=== PATIENT | male | born 1940 | race Caucasian/White ===

== ENCOUNTER → 2017-02-04 | Outpatient (CLI) | payer OTHER, BC ==
[~2017-02-04] MED LIST: ACET325T96 PO; BACI1OIN TOP; CLON0.5T3 PO; DOCU100C31 PO; FINA5TAB4 PO; IBUP600T44 PO; MULT-190 PO; QUET1TAB30 PO; SENN-61 PO; TAMS0.4C38 PO; TRAZ50TA35 PO
[2017-02-04 17:57] LABS: URINE APPEARANCE CLEAR (CLEAR); URINE BILIRUBIN NEG (NEG); URINE COLOR YELLOW; URINE EPITHELIAL CELL AUTO 20-30 /lpf (0-5); URINE NITRITE POS (NEG); URINE SPECIFIC GRAVITY 1.023 (1.000-1.030); UROBILINOGEN NEG (NEG)
[2017-02-04 17:58] LABS: MANUAL MICROSCOPIC REQUIRED? NO; REVIEW REQ? YES
--- NOTE | 2017-02-13 11:31 | CODING QUERY MEDICAL NECESSITY ---
CQSUPPORTING DIAGNOSIS NEEDED A supporting diagnosis is required for the test/procedure performed on this patient in order for us to be reimbursed by the patient's insurance. Please provide a supporting diagnosis for the following test/procedure listed below next to the test name along with your signature. *If there is no additional diagnosis for this patient that would support the following test/procedure please document that below next to the test/procedure. Test(s)/Procedure(s) that require a supporting diagnosis: DOS 02/04/17 URINE CULTURE TEST PATIENT AT [facility] Provider Signature: Date: Thank you Natasha John Health Information Management Once completed, please kindly fax back to [phone] For questions please call [phone]
== END ==
LOC: C.LABOUTLO 11:21
PROVIDERS: ATTEND Family Medicine
DX: R45.1 Restlessness and agitation (principal); N39.0 Urinary tract infection, site not specified; R41.82 Altered mental status, unspecified

== ENCOUNTER → 2017-02-08 | Outpatient (CLI) | payer OTHER, BC ==
[2017-02-08 10:18] LABS: BASO % 0.2 %; BASO ABS # 0.02 K/uL (0-0.2); COMPLETE YES; EOS % 1.2 %; HEMATOCRIT 41.2 % (42-52); IG% 0.3 %; LYMPH % 20.6 %; LYMPH ABS # 1.99 K/uL (1.2-3.4); MEAN CELL VOLUME 88.4 fL (80-100); MEAN CORPUSCULAR HEMOGLOBIN 30.7 pg (25-34); MEAN CORPUSCULAR HGB CONC 34.7 g/dl (32-36); MEAN PLATELET VOLUME 9.9 fL (7.4-10.4); MONO % 7.2 %; NEUT % 70.5 %; PLATELET COUNT 277 K/uL (130-400); RED BLOOD COUNT 4.66 M/uL (4.7-6.1); WHITE BLOOD COUNT 9.64 K/uL (4.8-10.8)
[2017-02-08 10:27] LABS: BLOOD UREA NITROGEN 17 mg/dl (7-18); BUN/CREATININE RATIO 18.2 (10-20); CALCIUM 8.9 mg/dl (8.5-10.1); CARBON DIOXIDE 27 mmol/L (21-32); CHLORIDE 109 mmol/L (98-107); CREATININE 0.94 mg/dl (0.60-1.40); GLUCOSE 90 mg/dl (70-99); SODIUM 142 mmol/L (136-145)
== END | disposition home or self-care (01) ==
LOC: C.LABOUTLO 10:03
PROVIDERS: ATTEND Family Medicine
DX: R45.1 Restlessness and agitation (principal)

== ENCOUNTER 2017-05-27 05:12 | Emergency (ER) | payer OTHER, BC ==
[~2017-05-27] VITALS: Ht 170.2 cm; Wt 74.6 kg
[~2017-05-27 05:12] MED LIST changes: -ACET325T96 PO; -CLON0.5T3 PO; -DOCU100C31 PO; -IBUP600T44 PO; -QUET1TAB30 PO; -SENN-61 PO; -TRAZ50TA35 PO
[2017-05-27 05:21] VITALS: Ht 170.2 cm; Wt 74.6 kg
[2017-05-27] MEDS ORDERED: XYLOCAINE 1%/SOD BICARB 20 ML VIAL INFIL ONE (05:45)
[2017-05-27] MEDS ORDERED: IBUP600T44 PO (05:51)
--- NOTE | 2017-05-27 05:51 | EMERGENCY ROOM VISIT NOTE ---
History Report prepared by Elizabeth: Pierre Barrios Under the Supervision of: Dr. Chanel Montez D.O. First contact with patient: 05:22 Chief Complaint: FALL Stated Complaint: FALL/LACERATION History of Present Illness The patient is a 77 year old male who presents to the Emergency Room after rolling out of bed this morning at [facility] shortly prior to arrival. Per hospital nursing staff the patient rolled out of bed and hit his head on his dresser while falling to the floor. The patient did not lose consciousness at any time. He denies any neck, back, or abdominal pain at this time. He has a known history of dementia. 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 A total of 10 systems reviewed and were otherwise negative. Past Medical & Surgical Medical Problems: (1) UTI (urinary tract infection) Family History No pertinent family history secondary to age. Social History Smoking Status: Former Smoker Alcohol Use: none Housing Status: lives alone Occupation Status: retired Current/Historical Medications Scheduled Bacitracin Zinc (Bacitracin), 1 APPLN TOP DAILY Finasteride (Proscar), 5 MG PO DAILY Ibuprofen (Motrin), 600 MG PO TID Ocuvite Preservision (Ocuvite Preservision), 1 TAB PO DAILY Quetiapine Fumarate (Seroquel), 25 MG PO HS Tamsulosin Hcl (Flomax), 0.4 MG PO DAILY Scheduled PRN Acetaminophen Tab (Tylenol), 325 MG PO QID PRN for Pain Clonazepam (Klonopin), 0.5 MG PO BID PRN for AGITATION/INSOMNIA Docusate Sodium (Docusate Sodium), 1 CAP PO BID PRN for Constipation Senna (Senokot), 1 TAB PO DAILY PRN for Constipation Trazodone Hcl (Trazodone), 25 MG PO HS PRN for Sleep Allergies Coded Allergies: No Known Allergies (Unverified , 05/27/17) Physical Exam Vital Signs Date Time Temp Pulse Resp B/P (MAP) Pulse Ox O2 Delivery O2 Flow Rate FiO2 05/27/17 05:21 36.6 76 18 134/76 94 Room Air Physical Exam General: The patient is pleasantly confused, easily follows commands. HEENT: Head - There is a 3 cm laceration just lateral to the left eyebrow. Pupils are equal, round, and reactive to light. Extraocular eye muscles are intact, and sclera are anicteric. Nose - moist nasal mucosa without discharge. Mouth - moist buccal mucosa. Ears - No hemotympanum. Oropharynx is nonerythematous and there is no tonsillar exudate or edema noted. Neck: Supple; no JVD, nuchal rigidity, cervical lymphadenopathy, or auscultated bruits. Heart: Regular rate and rhythm. There is a normal S1 and S2 with no murmurs, clicks, or gallops appreciated. Lungs: Clear to auscultation bilaterally with no wheezes, rales, or rhonchi. Abdomen: Soft, completely nontender, nondistended, with good bowel sounds. There are no palpable pulsatile masses or hepatosplenomegaly. There is no guarding, rigidity, or rebound noted. Extremities: No evidence of cyanosis, clubbing, or edema. There are easily palpable peripheral pulses. Skin: warm and dry with good turgor and no rashes. Medical Decision & Procedures Procedure Medications Ordered: Lidocaine Laceration Repair: Laceration Repair was performed by Landon Ovalle PA-C. See his note for further detail. ED Course 0524: Past medical records reviewed. The patient was evaluated in room A9. A complete history and physical exam was performed. 0545: Ordered Lidocaine HCl 20 mL. the wound was repaired by Landon Ovalle PA-C. Please see his dictation for complete procedure 0624: Upon reevaluation, the patient tolerated his laceration repair well. I discussed findings and results with him. He verbalized agreement of the treatment plan. The patient was discharged home. Medical Decision The patient is a 77 year old male who presents to the Emergency Department following a falling episode. Differential Diagnosis include; facial laceration, facial fracture, and head injury. The patient does not currently take blood thinners. He remains alert and at his baseline mental status. The wound to the left side of his face was repaired and he will be discharged back Impression Primary Impression: Facial laceration Additional Impression: Fall from bed Scribe Attestation The scribe's documentation has been prepared under my direction and personally reviewed by me in its entirety. I confirm that the note above accurately reflects all work, treatment, procedures, and medical decision making performed by me. Departure Information Dispostion Home / Self-Care Referrals [facility] (PCP) Forms HOME CARE DOCUMENTATION FORM, IMPORTANT VISIT INFORMATION Patient Instructions My [facility] Additional Instructions Take care to prevent falls from bed Have sutures removed in 5-7 days Problem Qualifiers
[2017-05-27] MEDS ORDERED: QUET1TAB30 PO (05:53)
[2017-05-27] MEDS ORDERED: ACET325T96 PO (05:55)
[2017-05-27] MEDS ORDERED: TRAZ50TA35 PO (05:55)
[2017-05-27] MEDS ORDERED: CLON0.5T3 PO (05:55)
[2017-05-27] MEDS ORDERED: SENN-61 PO (05:55)
[2017-05-27] MEDS ORDERED: DOCU100C31 PO (05:55)
--- NOTE | 2017-05-27 06:23 | EMERGENCY ROOM VISIT NOTE ---
ED Visit Note Patient was seen and evaluated the request of my attending physician, Dr. Montez , for a left eyebrow laceration. Please see Dr. Montez's dictation for full history of present illness and Emergency Department course outside of this repair. In short, the patient suffered a fall, and subsequent laceration to the left side eyebrow. On examination the patient is very pleasant and appears to have a 3.0 cm linear laceration to the lateral left eyebrow. This laceration does gape and will require repair. There is minimal bleeding. Laceration repair. Patient elects to have their laceration repaired. Verbal consent was obtained to perform the procedure. There is an abundance of materials available for the procedure. Patient is not allergic to latex. Using sterile technique the wound was cleaned with Betadine. The area was sterilely draped. 4 ml of 1% buffered lidocaine was used to anesthetize the eyebrow laceration. Once the patient was anesthetized, the wound was copiously irrigated under pressure with sterile saline. The wound was explored and there were no deep structures injured such as tendons, bone, or significant blood vessels. The laceration was repaired using 7 simple interrupted 5-0 nylon sutures with the wound edges being well approximated. Hemostasis was achieved. The area was cleaned with sterile saline and dressed with bacitracin ointment and bandage. Patient tolerated the procedure well without complications. Blood loss was negligible. Current/Historical Medications Scheduled Bacitracin Zinc (Bacitracin), 1 APPLN TOP DAILY Finasteride (Proscar), 5 MG PO DAILY Ibuprofen (Motrin), 600 MG PO TID Ocuvite Preservision (Ocuvite Preservision), 1 TAB PO DAILY Quetiapine Fumarate (Seroquel), 25 MG PO HS Tamsulosin Hcl (Flomax), 0.4 MG PO DAILY Scheduled PRN Acetaminophen Tab (Tylenol), 325 MG PO QID PRN for Pain Clonazepam (Klonopin), 0.5 MG PO BID PRN for AGITATION/INSOMNIA Docusate Sodium (Docusate Sodium), 1 CAP PO BID PRN for Constipation Senna (Senokot), 1 TAB PO DAILY PRN for Constipation Trazodone Hcl (Trazodone), 25 MG PO HS PRN for Sleep Allergies Coded Allergies: No Known Allergies (Unverified , 05/27/17) Vital Signs Date Time Temp Pulse Resp B/P (MAP) Pulse Ox O2 Delivery O2 Flow Rate FiO2 05/27/17 05:21 36.6 76 18 134/76 94 Room Air Departure Information Impression Primary Impression: Facial laceration Additional Impression: Fall from bed Dispostion Home / Self-Care Condition FAIR Referrals [facility] (PCP) Forms HOME CARE DOCUMENTATION FORM, IMPORTANT VISIT INFORMATION Patient Instructions [facility], ED Laceration Facial Sutr Tape Additional Instructions Take care to prevent falls from bed Have sutures removed in 5-7 days Problem Qualifiers
[2017-05-27 11:12] VITALS: BP 138/84; PULSE 76; TEMP 36.6; O2SAT 94
== END 2017-05-27 11:00 | disposition home or self-care (01) ==
LOC: EDBD 05:12 → C.EDA 05:13
DX: S01.81XA Laceration without foreign body of other part of head, initial encounter (principal); W06.XXXA Fall from bed, initial encounter; Y92.129 Unspecified place in nursing home as the place of occurrence of the external cause; W22.09XA Striking against other stationary object, initial encounter; Z87.440 Personal history of urinary (tract) infections; Z79.899 Other long term (current) drug therapy

== ENCOUNTER 2017-06-24 05:05 | Emergency (ER) | payer OTHER, BC ==
[~2017-06-24] VITALS: Ht 172.7 cm; Wt 77.7 kg
[~2017-06-24 05:05] MED LIST changes: +ACET325T96 PO; +CLON0.5T3 PO; +DOCU100C31 PO; +IBUP600T44 PO; +QUET1TAB30 PO; +SENN-61 PO; +TRAZ50TA35 PO
[2017-06-24 05:11] VITALS: TEMP 36.7; Ht 172.7 cm; Wt 77.7 kg
--- NOTE | 2017-06-24 06:24 | EMERGENCY ROOM VISIT NOTE ---
History Report prepared by Elizabeth: Mark Carreon Under the Supervision of: Dr. Demetrius Hopper D.O. First contact with patient: 05:11 Chief Complaint: FALL Stated Complaint: FALL History of Present Illness The patient is a 77 year old male who presents to the Emergency Room by EMS with complaints of constant facial pain s/p fall occurring just prior to arrival. He has a history of dementia. He states that he fell out of bed tonight and hit his head. The patient sustained a cut to his left eyebrow during the fall. He states that he did not lose consciousness. HPI limited secondary to dementia. Source of History: patient History Limited By: dementia Onset: Just prior to arrival Position: head (face) Timing: constant Associated Symptoms: No LOC Review of Systems ROS unobtainable secondary to dementia. Past Medical & Surgical Medical Problems: (1) UTI (urinary tract infection) Family History Unobtainable secondary to dementia. Social History Smoking Status: Former Smoker Alcohol Use: none Housing Status: lives alone Occupation Status: retired Current/Historical Medications Scheduled Finasteride (Proscar), 5 MG PO DAILY Ocuvite Preservision (Ocuvite Preservision), 1 TAB PO DAILY Quetiapine Fumarate (Seroquel), 25 MG PO HS Tamsulosin Hcl (Flomax), 0.4 MG PO DAILY Scheduled PRN Acetaminophen Tab (Tylenol), 325 MG PO QID PRN for Pain Clonazepam (Klonopin), 0.5 MG PO BID PRN for AGITATION/INSOMNIA Docusate Sodium (Docusate Sodium), 1 CAP PO BID PRN for Constipation Senna (Senokot), 1 TAB PO DAILY PRN for Constipation Trazodone Hcl (Trazodone), 25 MG PO HS PRN for Sleep Allergies Coded Allergies: No Known Allergies (Unverified , 06/24/17) Physical Exam Vital Signs Date Time Temp Pulse Resp B/P (MAP) Pulse Ox O2 Delivery O2 Flow Rate FiO2 06/24/17 05:11 36.7 63 16 155/92 98 Room Air Physical Exam GENERAL: Awake, alert, well-appearing, in no distress HENT: Normocephalic Oropharynx unremarkable. Small superficial 1 cm laceration lateral to the left eye. EYES: Normal conjunctiva. Sclera non-icteric. NECK: Supple. No nuchal rigidity. FROM. No JVD. RESPIRATORY: Clear to auscultation. CARDIAC: Regular rate, normal rhythm. Extremities warm and well perfused. Pulses equal. ABDOMEN: Soft, non-distended. No tenderness to palpation. No rebound or guarding. No masses. RECTAL: Deferred. MUSCULOSKELETAL: Chest examination reveals no tenderness. The back is symmetrical on inspection without obvious abnormality. There is no CVA tenderness to palpation. No joint edema. Flexure contractions. LOWER EXTREMITIES: Calves are equal size bilaterally and non-tender. No edema. No discoloration. NEURO: Normal sensorium. No sensory or motor deficits noted. Follows commands. SKIN: No rash or jaundice noted. Medical Decision & Procedures ER Provider Diagnostic Interpretation: CT per radiology negative acute for bleed shunt is intact Procedure Location: left eyebrow Total length: 1 cm Complexity: simple Verbal consent was obtained after the risks and benefits were explained, including but not limited to infection, and pain. At this time, the risks of the procedure are less than the risks of NOT performing the procedure. A time out was taken and the correct patient and site identified. The wound was explored for foreign bodies and none found. Examination revealed no injury to deep structures such as tendons, bone, or significant blood vessels. Debridement was not performed. The wound edges were approximated using Dermabond. Hemostasis and excellent approximation was achieved. Antibacterial ointment and a sterile dressing applied. Detailed wound care instructions and signs and symptoms of infection reviewed with the the patient. No complications and the patient tolerated the procedure well. ED Course 0510: The patient was evaluated in room B7. A complete history and physical exam was performed. I applied Dermabond to the patient's laceration. See the procedure note for details. Medical Decision Differential diagnoses include but are not limited to; closed head injury, skull fracture, ICH, and laceration. Medication Reconcilliation Current Medication List: was personally reviewed by me Impression Primary Impression: Closed head injury Additional Impression: Facial laceration Scribe Attestation The scribe's documentation has been prepared under my direction and personally reviewed by me in its entirety. I confirm that the note above accurately reflects all work, treatment, procedures, and medical decision making performed by me. Departure Information Dispostion Home / Self-Care [facility]errals [facility] ([facility] Patient Instructions ED Head Injury Closed, ED Laceration Facial Skin Glue, My [facility] Problem Qualifiers Primary Impression: Closed head injury Encounter type: initial encounter Qualified Codes: S09.90XA - Unspecified injury of head, initial encounter Additional Impression: Facial laceration Encounter type: initial encounter Qualified Codes: S01.81XA - Laceration without foreign body of other part of head, initial encounter
--- NOTE | 2017-06-24 08:07 | DIAGNOSTIC IMAGING REPORT ---
CT OF THE HEAD WITHOUT CONTRAST CLINICAL HISTORY: Fall. Headache. COMPARISON STUDY: Head CT December 02, 2015. CT DOSE: 1577.26 mGycm TECHNIQUE: Helical axial images of the head were obtained without IV contrast. Automated exposure control was utilized for the study. A dose lowering technique was utilized adhering to the principles of ALARA. FINDINGS: No acute intracranial hemorrhage, midline shift or mass effect is present. A right frontal ventriculostomy catheter is unchanged in position. The tip is within the frontal horn of the right lateral ventricle. Mild ventricular dilatation is unchanged since exam of December 02, 2015. White matter hypodensities suggest moderate small vessel disease. There are no findings to suggest acute dural sinus thrombosis or acute territorial infarct. There is no calvarial fracture. Visualized portions of the sinuses and mastoid air cells are clear. IMPRESSION: 1. No acute intracranial findings. 2. No calvarial fracture. 3. Stable ventricular size with right frontal ventriculostomy catheter in place. Electronically signed by: Nabeel Menchaca M.D. 06/24/2017 8:06 AM Dictated Date/Time: 06/24/2017 8:04 AM
[2017-06-24 08:42] VITALS: BP 152/90; PULSE 73; O2SAT 99
== END 2017-06-24 08:52 | disposition home or self-care (01) ==
LOC: EDBD 05:05 → C.EDB 05:07
DX: S01.81XA Laceration without foreign body of other part of head, initial encounter (principal); W06.XXXA Fall from bed, initial encounter; F03.90 Unspecified dementia, unspecified severity, without behavioral disturbance, psychotic disturbance, mood disturbance, and anxiety; Z87.440 Personal history of urinary (tract) infections; Z87.891 Personal history of nicotine dependence; Z79.899 Other long term (current) drug therapy

== ENCOUNTER → 2017-08-30 | Outpatient (CLI) | payer OTHER, BC ==
[~2017-08-30] MED LIST changes: -BACI1OIN TOP; -IBUP600T44 PO
[2017-08-31 09:03] LABS: URINE APPEARANCE CLOUDY (CLEAR); URINE BILIRUBIN NEG (NEG); URINE COLOR YELLOW; URINE EPITHELIAL CELL AUTO 20-30 /lpf (0-5); URINE NITRITE POS (NEG); URINE PH 6.5 (4.5-7.5); URINE SPECIFIC GRAVITY 1.025 (1.000-1.030); UROBILINOGEN NEG (NEG); ZZUR CULT IF INDIC CLEAN CATCH YES
[2017-08-31 09:04] LABS: MANUAL MICROSCOPIC REQUIRED? NO; REVIEW REQ? YES
== END | disposition home or self-care (01) ==
LOC: C.LABOUTLO 07:59
PROVIDERS: ATTEND Family Medicine
DX: R41.82 Altered mental status, unspecified (principal)

== ENCOUNTER 2017-09-27 15:26 | Emergency (ER) | payer OTHER, BC ==
[~2017-09-27] VITALS: Ht 177.8 cm; Wt 74.6 kg
[2017-09-27 15:30] VITALS: TEMP 36.6; Ht 177.8 cm; Wt 74.6 kg
--- NOTE | 2017-09-27 15:52 | EMERGENCY ROOM VISIT NOTE ---
History Report prepared by Elizabeth: Mark Carreon Under the Supervision of: Dr. Elder New M.D. First contact with patient: 15:37 Chief Complaint: FALL Stated Complaint: FALL STRUCK HEAD History of Present Illness The patient is a 77 year old male who presents to the Emergency Room by EMS for evaluation of a head injury s/p fall occurring shortly prior to arrival. The patient is a resident at [facility]. He denies any pain to his head. He notes that he did not eat today. EMS explains that the patient has a history of confusion at baseline. He is non-ambulatory at baseline. HPI limited secondary to mental status. Tetanus status is uncertain, the fpc is uncertain of his last tetanus immunization. Source of History: patient, EMS History Limited By: other (mental status) Onset: shortly prior to arrival Position: head Quality: other (injury) Timing: other (episode) Associated Symptoms: No headache Review of Systems ROS limited secondary to mental status. Past Medical & Surgical Medical Problems: (1) UTI (urinary tract infection) Family History Unobtainable secondary to mental status. Social History Smoking Status: Former Smoker Alcohol Use: none Housing Status: lives alone Occupation Status: retired Current/Historical Medications Scheduled Finasteride (Proscar), 5 MG PO DAILY Ocuvite Preservision (Ocuvite Preservision), 1 TAB PO DAILY Quetiapine Fumarate (Seroquel), 25 MG PO HS Tamsulosin Hcl (Flomax), 0.4 MG PO DAILY Scheduled PRN Acetaminophen Tab (Tylenol), 325 MG PO QID PRN for Pain Clonazepam (Klonopin), 0.5 MG PO BID PRN for AGITATION/INSOMNIA Docusate Sodium (Docusate Sodium), 1 CAP PO BID PRN for Constipation Senna (Senokot), 1 TAB PO DAILY PRN for Constipation Trazodone Hcl (Trazodone), 25 MG PO HS PRN for Sleep Allergies Coded Allergies: No Known Allergies (Unverified , 06/24/17) Physical Exam Vital Signs Date Time Temp Pulse Resp B/P (MAP) Pulse Ox O2 Delivery O2 Flow Rate FiO2 09/27/17 17:20 88 16 156/77 100 Room Air 09/27/17 16:08 85 20 129/94 98 Room Air 09/27/17 15:30 36.6 82 18 130/94 98 Room Air Physical Exam GENERAL: Patient is in no acute distress. HEENT: Abrasion to the left forehead. No laceration requiring repair. No other facial or scalp trauma noted. Mucous membranes are moist. PERRL. NECK: No stridor, no adenopathy, no meningismus, trachea is midline. No posterior cervical spine tenderness. LUNGS: Clear to auscultation bilaterally, no wheeze, no rhonchi, breath sounds equal. HEART: Without murmurs gallops or rubs, regular rate and rhythm. ABDOMEN: Soft, nontender, bowel sounds positive, no hernias, no peritonitis. EXTREMITIES: No cyanosis or edema, full range of motion of all the joints without pain or difficulty, no signs for acute trauma. NEUROLOGIC: Awake, alert, moves all extremities. Baseline confusion. GCS 14. SKIN: No rash, no jaundice, no diaphoresis. Medical Decision & Procedures ER Provider Diagnostic Interpretation: CT results as stated below per my review and radiologist interpretation: HEAD WITHOUT CONTRAST (CT) Findings: The paranasal sinuses and mastoid air cells are clear. Stable right ventriculostomy catheter. Ventricular prominence considered chronic. Considerable chronic small vessel change of the periventricular deep white matter regions. No acute or interval change. No midline shift. No acute intracranial hemorrhage. Impression: Stable chronic and postoperative change. No acute intracranial abnormality. The above report was generated using voice recognition software. It may contain grammatical, syntax or spelling errors. Electronically signed by: Pj Zuñiga M.D. 09/27/2017 4:34 PM Medications Administered Medications (Trade) Dose Ordered Sig/Deonte Route Start Time Stop Time Status Last Admin Dose Admin Diphtheria/ Pertussis/Tetanus Vacc (Adacel Inj) 0.5 ml ONCE ONCE IM. 09/27/17 17:00 09/27/17 17:01 DC 09/27/17 17:20 0.5 ML ED Course 1540: The patient was evaluated in room B8. A complete history and physical exam was performed. 1700: Ordered Adacel Inj 0.5 mg IM. 1715: Reevaluated the patient. Discussed results and discharge instructions: he verbalized understanding and agreement. The patient is ready for discharge. Medical Decision The patient is a 77 year old male who presents to the ED for evaluation of a head injury. Differential diagnoses considered include ICH, skull fracture, laceration, and extremity/head/chest trauma. Patient presents for a fall. He did strike his head. He has dementia and is really an unreliable historian. He is a DO NOT RESUSCITATE. By report, he does not ambulate-he is wheelchair-bound. On exam, he has an abrasion to his left forehead. No neck pain by exam. No evidence for extremity, chest or abdominal trauma. He currently denies any pain or complaints. Vital signs are within acceptable limits. We were unsure of his last tetanus booster, and Adacel booster was given IM. Brain CT was done, no acute bleed or mass effect. The patient is being discharged back to his [facility]. There is no reason for laboratory testing. Head Trauma GCS Score: 14 Medication Reconcilliation Current Medication List: was personally reviewed by me Blood Pressure Screening Patient's blood pressure: Normal blood pressure Blood pressure disposition: Did not require urgent referral Impression Primary Impression: Head trauma Additional Impression: Fall Scribe Attestation The scribe's documentation has been prepared under my direction and personally reviewed by me in its entirety. I confirm that the note above accurately reflects all work, treatment, procedures, and medical decision making performed by me. Departure Information Dispostion Home / Self-Care [facility] Forms HOME CARE DOCUMENTATION FORM, IMPORTANT VISIT INFORMATION Patient Instructions My [facility] Additional Instructions brain CT scan today was ok an Adacel booster was given today vital signs were ok today return with any concerns or change in behavior Problem Qualifiers
--- NOTE | 2017-09-27 16:35 | DIAGNOSTIC IMAGING REPORT ---
HEAD WITHOUT CONTRAST (CT) CT DOSE: 614.27 mGy.cm HISTORY: Trauma. Mental status change. fall, hit head, dementia history TECHNIQUE: Multiaxial CT images of the head were performed without the use of intravenous contrast. A dose lowering technique was utilized adhering to the principles of ALARA. Comparison: 06/15/2017 Findings: The paranasal sinuses and mastoid air cells are clear. Stable right ventriculostomy catheter. Ventricular prominence considered chronic. Considerable chronic small vessel change of the periventricular deep white matter regions. No acute or interval change. No midline shift. No acute intracranial hemorrhage. Impression: Stable chronic and postoperative change. No acute intracranial abnormality. The above report was generated using voice recognition software. It may contain grammatical, syntax or spelling errors. Electronically signed by: Pj Zuñiga M.D. 09/27/2017 4:34 PM Dictated Date/Time: 09/27/2017 4:32 PM
[2017-09-27] MEDS ORDERED: DIPHTHERIA/TETANUS/PERTUSSIS 0.5 ML SYR/VIAL IM. ONE (17:00)
[2017-09-27 19:33] VITALS: BP 146/87; PULSE 97; O2SAT 97
== END 2017-09-27 19:27 | disposition home or self-care (01) ==
LOC: EDBD 15:26 → C.EDB 15:27
DX: S09.90XA Unspecified injury of head, initial encounter (principal); W19.XXXA Unspecified fall, initial encounter; Z87.891 Personal history of nicotine dependence; Z23 Encounter for immunization

== ENCOUNTER 2017-10-17 09:30 | Emergency (ER) | payer OTHER, BC ==
[~2017-10-17 09:30] MED LIST changes: -CLON0.5T3 PO; -TRAZ50TA35 PO
[2017-10-17 09:38] VITALS: TEMP 36.3
--- NOTE | 2017-10-17 09:40 | EMERGENCY ROOM VISIT NOTE ---
History Report prepared by Elizabeth: Millicent Evans Under the Supervision of: Dr. Augustus Hein D.O. First contact with patient: 09:35 Chief Complaint: FALL Stated Complaint: FALL History of Present Illness The patient is a 77 year old male who presents to the Emergency Room with complaints of fall. History is severely limited because of advanced dementia. The patient suffers from Parkinson's and does not ambulate well. When he tries to ambulate he will usually fall unless he has significant help. The patient fell this morning from the couch striking his face. He had significant abrasions to his forehead. According to the prehospital personnel as well as the charge nurse the patient was sent to the emergency department for an evaluation of a head injury because this is her policy. The patient does not voice any complaints at this time although with his severe dementia I'm unsure if no definite pain can be assumed. The patient did not have any reported injury other than the head and face. The patient has not had any fevers or other complaints. The patient is had frequent falls recently. The patient has not had any vomiting. There was wound care done at the personal assisted prior to the patient's arrival. Review of Systems Review of systems was unobtainable because the patient's advanced dementia. Past Medical & Surgical Medical Problems: (1) UTI (urinary tract infection) Social History Smoking Status: Never Smoker Alcohol Use: none Housing Status: assisted living Occupation Status: retired Current/Historical Medications Scheduled Finasteride (Proscar), 5 MG PO DAILY Ocuvite Preservision (Ocuvite Preservision), 1 TAB PO DAILY Quetiapine Fumarate (Seroquel), 25 MG PO HS Tamsulosin Hcl (Flomax), 0.4 MG PO HS Scheduled PRN Acetaminophen Tab (Tylenol), 325 MG PO QID PRN for Pain Clonazepam (Klonopin), 0.5 MG PO BID PRN for Anxiety/Insomnia Docusate Sodium (Docusate Sodium), 1 CAP PO BID PRN for Constipation Senna (Senokot), 1 TAB PO DAILY PRN for Constipation Trazodone Hcl (Trazodone), 75 MG PO HS PRN for Sleep Allergies Coded Allergies: No Known Allergies (Unverified , 10/17/17) Physical Exam Vital Signs Date Time Temp Pulse Resp B/P (MAP) Pulse Ox O2 Delivery O2 Flow Rate FiO2 10/17/17 12:04 67 16 121/81 95 10/17/17 09:38 36.3 107 20 144/74 95 Room Air Physical Exam GENERAL: Patient is awake alert. He is mildly anxious. EYES: The conjunctivae are clear. The pupils are round and reactive. EARS, NOSE, MOUTH AND THROAT: The nose is without any evidence of any deformity. Mucous membranes are moist tongue is midline. There are significant abrasions on the forehead as well as the face. There is no active bleeding. NECK: The neck is nontender and supple. RESPIRATORY: Normal respiratory effort is noted there is no evidence of wheezing rhonchi or rales CARDIOVASCULAR: Regular rate and rhythm noted there no murmurs rubs or gallops normal S1 normal S2 GASTROINTESTINAL: The abdomen is soft. Bowel sounds are present in all quadrants. Abdomen is nontender BACK: No midline tenderness or or step-off noted range of motion in flexion extension as well as rotation no signs of muscle spasm noted MUSCULOSKELETAL/EXTREMITIES: There is no gross deformity. The patient has significant muscle rigidity because of his underlying Parkinson's. Range of motion testing was difficult especially in the right knee in the right hip. SKIN: There is no obvious evidence of any rash. Trace pedal edema was noted bilaterally. NEUROLOGIC: Patient is awake and oriented to person and place but not time or situation. Strength was diminished but symmetric. Muscle rigidity was severe. Medical Decision & Procedures ER Provider Diagnostic Interpretation: [~ rep ct add3]] CT SCAN OF THE CERVICAL SPINE CLINICAL HISTORY: Fall. COMPARISON STUDY: No priors. TECHNIQUE: CT scan of the cervical spine is performed from the skull base to the upper thoracic spine. Images are reviewed in the axial, sagittal, and coronal planes. IV contrast was not administered for this examination. A dose lowering technique was utilized adhering to the principles of ALARA. CT DOSE: 479.66 mGycm FINDINGS: Skeletal structures: The skeletal structures are osteopenic. There is no evidence of fracture or subluxation involving the cervical spine. Vertebral body height and alignment are maintained. The odontoid process and lateral masses are intact. The atlantoaxial articulation is preserved noting advanced productive degenerative change. The spinous processes appear intact. Tiny anterior osteophytes are seen throughout. There is mild to moderate multilevel cervical spondylosis. Uncovertebral and facet arthropathy contributes to mild neuroforaminal stenosis at several levels. Intervertebral discs: Moderate to advanced disc space narrowing is seen at C5-C6 and C6-C7. Mild to moderate narrowing is seen at C3-C4 and C4-C5. Central canal: Tiny posterior disc osteophyte complexes at C5-C6 and C6-C7 may contribute to mild acquired compromise the central canal. Soft tissues: The prevertebral and paraspinous soft tissues are within normal limits. A ventricular shunt catheter traverses the right side of the neck. Calvarium: The visualized calvarium at the skull base appears intact. Brain parenchyma: Partially visualized brain parenchyma the skull base is within normal limits. Sinuses and mastoids: The visualized paranasal sinuses are clear. The mastoid air cells are well pneumatized. Lung apices: Clear as visualized. IMPRESSION: 1. There is no evidence of fracture or subluxation involving the cervical spine. 2. Osteopenia and spondylotic change as above. CHEST 2 VIEWS ROUTINE CLINICAL HISTORY: Trauma COMPARISON STUDY: 10/17/2017 FINDINGS: The heart is at the upper limits of normal in size. A right-sided ventriculoperitoneal shunt catheter is visualized. There are multiple right-sided rib fractures which are likely old. There is no pneumothorax. There are increased markings at both lung bases, likely atelectatic although an inflammatory process could appear similar. There is an area of increased density left lung apex which while nonspecific likely represents a summation.[ No pleural effusions are visualized IMPRESSION: 1. Old right-sided rib fractures, likely old 2. No evidence of pneumothorax 3. Bibasilar opacities, atelectatic versus inflammatory. Electronically signed by: Alex Lynch M.D. 10/17/2017 10:[address] HEAD WITHOUT CONTRAST (CT) CLINICAL HISTORY: Head pain status post trauma. CONFUSION COMPARISON STUDY: 09/27/2017 TECHNIQUE: Axial CT of the brain is performed from the vertex to the skull base. IV contrast was not administered for this examination. A dose lowering technique was utilized adhering to the principles of ALARA. CT DOSE: 729.78 mGycm FINDINGS: No intra or extra-axial mass lesions are visualized. There is no CT evidence of acute cortical infarction. There is no evidence of midline shift. There is no acute hemorrhage. No calvarial fractures are visualized. There are moderate white matter hypodensities likely on a small vessel basis. There is mild particular prominence similar to the prior study. There is no change the position of the right frontal ventriculostomy catheter. There is no evidence of acute sinusitis IMPRESSION: 1. No acute intracranial findings 2. Stable ventricular size. No change in the position of the right frontal ventriculostomy catheter. Electronically signed by: Alex Lynch M.D. 10/17/2017 11:35 AM Dictated Date/Time: 10/17/2017 11:34 AM R PELVIS/UNILATERAL HIP 2-3VIEWS CLINICAL HISTORY: fall. Right hip pain. COMPARISON STUDY: None. FINDINGS: No fracture or dislocation within the proximal right femur. The left hip is intact. Mild bilateral hip osteoarthritis. No fractures identified within the visualized pelvic bones. Partial visualization of a right-sided abdominal shunt catheter. The bones are osteopenic. IMPRESSION: No fracture or dislocation within the pelvis or hips. Electronically signed by: Bebo Betancur M.D. 10/17/2017 10:50 AM Dictated Date/Time: 10/17/2017 10:48 AM RIGHT KNEE 2 VIEWS CLINICAL HISTORY: Fall with right knee injury. FINDINGS: AP and crosstable lateral views of the right knee are obtained. No prior studies are available for comparison at the time of dictation. The skeletal structures are osteopenic. No fracture is seen. There is mild tricompartmental degenerative joint space narrowing. A patellar enthesophyte is observed. There is no joint effusion. Prepatellar soft tissue swelling is noted. Atherosclerotic calcification is seen in the popliteal artery. IMPRESSION: Prepatellar soft tissue swelling with no radiographic evidence of right knee fracture. Electronically signed by: Elder Mario M.D. 10/17/2017 10:51 AM Dictated Date/Time: 10/17/2017 10:50 AM Medical Decision Prior records/ancillary studies reviewed. Triage Nursing notes reviewed. Additional history obtained from the prehospital personnel. The patient's history was concerning for traumatic injury Differential diagnosis: Etiologies such as fracture, dislocation, intra-abdominal, pneumothorax, intrathoracic , intracranial, neurologic, as well as other traumatic pathologies were entertained. The patient is a 77-year-old male who presented to the emergency department from his personal assisted after a fall. The patient is a history of frequent falls but appears to have a significant abrasion to his face after this fall. The patient had some decreased range of motion his right lower extremity. There is no bony abnormality noted but some swelling in the right knee. According to his family member who presented to the emergency department to be with him he's had this problem which is ongoing and is felt to be secondary to his worsening Parkinson's and muscle contracture. I discussed the patient's radiographic studies with him and his family member. I recommended a follow-up appointment with the primary care physician. I also recommended that they continue all medications as prescribed as well as fall precautions. Specifically I recommended that the knee be rechecked especially with the swelling that was noted in the prepatellar region. I do not feel this represents infection. The patient appears to have frequent falls and had multiple lower extremity abrasions in different stages of healing. I do feel this likely represents a previous injury. Head Trauma GCS Score: 14 Impression Primary Impression: Fall Additional Impressions: Contusion of multiple sites Facial abrasion Scribe Attestation The scribe's documentation has been prepared under my direction and personally reviewed by me in its entirety. I confirm that the note above accurately reflects all work, treatment, procedures, and medical decision making performed by me. Departure Information Referrals Gerardo Bailey M.D. ([facility]) (PCP) Patient Instructions My [facility] Problem Qualifiers Primary Impression: Fall Encounter type: initial encounter Qualified Codes: W19.XXXA - Unspecified fall, initial encounter Additional Impressions: Facial abrasion Encounter type: initial encounter Qualified Codes: S00.81XA - Abrasion of other part of head, initial encounter
--- NOTE | 2017-10-17 10:47 | DIAGNOSTIC IMAGING REPORT ---
CHEST 2 VIEWS ROUTINE CLINICAL HISTORY: Trauma COMPARISON STUDY: 10/17/2017 FINDINGS: The heart is at the upper limits of normal in size. A right-sided ventriculoperitoneal shunt catheter is visualized. There are multiple right-sided rib fractures which are likely old. There is no pneumothorax. There are increased markings at both lung bases, likely atelectatic although an inflammatory process could appear similar. There is an area of increased density left lung apex which while nonspecific likely represents a summation.[ No pleural effusions are visualized IMPRESSION: 1. Old right-sided rib fractures, likely old 2. No evidence of pneumothorax 3. Bibasilar opacities, atelectatic versus inflammatory. Electronically signed by: Alex Lynch M.D. 10/17/2017 10:46 AM Dictated Date/Time: 10/17/2017 10:44 AM
--- NOTE | 2017-10-17 10:51 | DIAGNOSTIC IMAGING REPORT ---
R PELVIS/UNILATERAL HIP 2-3VIEWS CLINICAL HISTORY: fall. Right hip pain. COMPARISON STUDY: None. FINDINGS: No fracture or dislocation within the proximal right femur. The left hip is intact. Mild bilateral hip osteoarthritis. No fractures identified within the visualized pelvic bones. Partial visualization of a right-sided abdominal shunt catheter. The bones are osteopenic. IMPRESSION: No fracture or dislocation within the pelvis or hips. Electronically signed by: Bebo Betancur M.D. 10/17/2017 10:50 AM Dictated Date/Time: 10/17/2017 10:48 AM
--- NOTE | 2017-10-17 10:52 | DIAGNOSTIC IMAGING REPORT ---
RIGHT KNEE 2 VIEWS CLINICAL HISTORY: Fall with right knee injury. FINDINGS: AP and crosstable lateral views of the right knee are obtained. No prior studies are available for comparison at the time of dictation. The skeletal structures are osteopenic. No fracture is seen. There is mild tricompartmental degenerative joint space narrowing. A patellar enthesophyte is observed. There is no joint effusion. Prepatellar soft tissue swelling is noted. Atherosclerotic calcification is seen in the popliteal artery. IMPRESSION: Prepatellar soft tissue swelling with no radiographic evidence of right knee fracture. Electronically signed by: Elder Mario M.D. 10/17/2017 10:51 AM Dictated Date/Time: 10/17/2017 10:50 AM
[2017-10-17] MEDS ORDERED: CLON0.5T3 PO (10:57)
[2017-10-17] MEDS ORDERED: TRAZ50TA35 PO (10:59)
--- NOTE | 2017-10-17 11:37 | DIAGNOSTIC IMAGING REPORT ---
CT HEAD WITHOUT CONTRAST (CT) CLINICAL HISTORY: Head pain status post trauma. CONFUSION COMPARISON STUDY: 09/27/2017 TECHNIQUE: Axial CT of the brain is performed from the vertex to the skull base. IV contrast was not administered for this examination. A dose lowering technique was utilized adhering to the principles of ALARA. CT DOSE: 729.78 mGycm FINDINGS: No intra or extra-axial mass lesions are visualized. There is no CT evidence of acute cortical infarction. There is no evidence of midline shift. There is no acute hemorrhage. No calvarial fractures are visualized. There are moderate white matter hypodensities likely on a small vessel basis. There is mild particular prominence similar to the prior study. There is no change the position of the right frontal ventriculostomy catheter. There is no evidence of acute sinusitis IMPRESSION: 1. No acute intracranial findings 2. Stable ventricular size. No change in the position of the right frontal ventriculostomy catheter. Electronically signed by: Alex Lynch M.D. 10/17/2017 11:35 AM Dictated Date/Time: 10/17/2017 11:34 AM
--- NOTE | 2017-10-17 11:43 | DIAGNOSTIC IMAGING REPORT ---
CT SCAN OF THE CERVICAL SPINE CLINICAL HISTORY: Fall. COMPARISON STUDY: No priors. TECHNIQUE: CT scan of the cervical spine is performed from the skull base to the upper thoracic spine. Images are reviewed in the axial, sagittal, and coronal planes. IV contrast was not administered for this examination. A dose lowering technique was utilized adhering to the principles of ALARA. CT DOSE: 479.66 mGycm FINDINGS: Skeletal structures: The skeletal structures are osteopenic. There is no evidence of fracture or subluxation involving the cervical spine. Vertebral body height and alignment are maintained. The odontoid process and lateral masses are intact. The atlantoaxial articulation is preserved noting advanced productive degenerative change. The spinous processes appear intact. Tiny anterior osteophytes are seen throughout. There is mild to moderate multilevel cervical spondylosis. Uncovertebral and facet arthropathy contributes to mild neuroforaminal stenosis at several levels. Intervertebral discs: Moderate to advanced disc space narrowing is seen at C5-C6 and C6-C7. Mild to moderate narrowing is seen at C3-C4 and C4-C5. Central canal: Tiny posterior disc osteophyte complexes at C5-C6 and C6-C7 may contribute to mild acquired compromise the central canal. Soft tissues: The prevertebral and paraspinous soft tissues are within normal limits. A ventricular shunt catheter traverses the right side of the neck. Calvarium: The visualized calvarium at the skull base appears intact. Brain parenchyma: Partially visualized brain parenchyma the skull base is within normal limits. Sinuses and mastoids: The visualized paranasal sinuses are clear. The mastoid air cells are well pneumatized. Lung apices: Clear as visualized. IMPRESSION: 1. There is no evidence of fracture or subluxation involving the cervical spine. 2. Osteopenia and spondylotic change as above. Electronically signed by: Elder Mario M.D. 10/17/2017 11:41 AM Dictated Date/Time: 10/17/2017 11:38 AM
[2017-10-17 12:04] VITALS: BP 121/81; PULSE 67; O2SAT 95
== END 2017-10-17 12:13 | disposition home or self-care (01) ==
LOC: EDBD 09:30 → C.EDB 09:34
DX: S00.81XA Abrasion of other part of head, initial encounter (principal); T14.8XXA Other injury of unspecified body region, initial encounter; W19.XXXA Unspecified fall, initial encounter; Z87.81 Personal history of (healed) traumatic fracture; Z98.2 Presence of cerebrospinal fluid drainage device; M16.0 Bilateral primary osteoarthritis of hip; M85.80 Other specified disorders of bone density and structure, unspecified site

== ENCOUNTER 2017-10-29 03:49 | Emergency (ER) | payer OTHER, BC ==
[~2017-10-29] VITALS: Ht 172.7 cm; Wt 76.5 kg
[~2017-10-29 03:49] MED LIST changes: +CLON0.5T3 PO; +TRAZ50TA35 PO
[2017-10-29 03:55] VITALS: TEMP 36.6; Ht 172.7 cm; Wt 76.5 kg
[2017-10-29 04:00] VITALS: O2SAT 95
--- NOTE | 2017-10-29 04:13 | EMERGENCY ROOM VISIT NOTE ---
History Report prepared by Romeoibe: Jaquelin Hicks Under the Supervision of: Dr. Demetrius Hopper D.O. First contact with patient: 03:53 Chief Complaint: FALL Stated Complaint: FOUND ON FLOOR History of Present Illness The patient is a 77 year old male who presents to the Emergency Room with complaints of a fall that occurred prior to arrival. He was brought to the ED via EMS from [facility], where he resides. EMS reports the patient was found on the floor of his room with lacerations on his face. [facility] denies any LOC. The patient denies any neck pain or hip pain. 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 A total of ten systems were reviewed and were otherwise negative. Past Medical & Surgical Medical Problems: (1) Dementia (2) UTI (urinary tract infection) Social History Smoking Status: Unknown if Ever Smoked Alcohol Use: none Drug Use: none Marital Status: Housing Status: assisted living Occupation Status: retired Current/Historical Medications Scheduled Finasteride (Proscar), 5 MG PO DAILY Ocuvite Preservision (Ocuvite Preservision), 1 TAB PO DAILY Quetiapine Fumarate (Seroquel), 25 MG PO HS Tamsulosin Hcl (Flomax), 0.4 MG PO HS Scheduled PRN Acetaminophen Tab (Tylenol), 325 MG PO QID PRN for Pain Clonazepam (Klonopin), 0.5 MG PO BID PRN for Anxiety/Insomnia Docusate Sodium (Docusate Sodium), 1 CAP PO BID PRN for Constipation Senna (Senokot), 1 TAB PO DAILY PRN for Constipation Trazodone Hcl (Trazodone), 75 MG PO HS PRN for Sleep Allergies Coded Allergies: No Known Allergies (Unverified , 10/17/17) Physical Exam Vital Signs Date Time Temp Pulse Resp B/P (MAP) Pulse Ox O2 Delivery O2 Flow Rate FiO2 10/29/17 04:41 69 16 139/66 97 Room Air 10/29/17 04:04 66 10/29/17 04:00 95 Room Air 10/29/17 03:55 36.6 68 18 138/74 96 Room Air Physical Exam GENERAL: Patient is alert, demented but cooperative. HENT: Normocephalic, atraumatic. Oropharynx unremarkable. Abrasion and contusion to right cheek. EYES: Normal conjunctiva. Sclera non-icteric. NECK: Supple. Nontender. No nuchal rigidity. FROM. No JVD. RESPIRATORY: Clear to auscultation. CARDIAC: Regular rate, normal rhythm. Systolic ejection murmur. Extremities warm and well perfused. Pulses equal. ABDOMEN: Soft, non-distended. No tenderness to palpation. No rebound or guarding. No masses. RECTAL: Deferred. MUSCULOSKELETAL: Chest examination reveals no tenderness. The back is symmetrical on inspection without obvious abnormality. There is no CVA tenderness to palpation. No joint edema. LOWER EXTREMITIES: Calves are equal size bilaterally and non-tender. No edema. No discoloration. NEURO: Patient is alert but demented. No sensory or motor deficits noted. SKIN: No rash or jaundice noted. Medical Decision & Procedures ER Provider Diagnostic Interpretation: X ray results as stated below per my interpretation and radiologist interpretation. Other radiology results as stated below per my review and radiologist interpretation CT C SPINE: No evidence of acute fracture or malalignment. Radiologist: Ruben Hendricks MD CT HEAD: Comparison: CT head 09/27/17. No acute intracranial abnormality. No ICH, mass effect or edema. Cortical atrophy and white matter changes most consistent with chronic small vessel disease. Stable position of right frontal approach ventriculostomy catheter. Ventricles are stable size. No skull fracture. Radiologist: Ruben Hendricks MD ED Course 0408: The patient was evaluated in room A2. A complete history and physical exam was performed. 0520: I reevaluated the patient. He is resting comfortably. I discussed his results and discharge instructions and he verbalized complete understanding and agreement. Medical Decision The differential diagnoses considered include sprain, strain, contusion, fracture and ICH. Patient is resting in no distress at 5:10 AM, patient had a CT of his brain and cervical spine which were negative for intracranial hemorrhage or fracture. Patient will be returned to the skilled nursing he has a history of frequent falls. Medication Reconcilliation Current Medication List: was personally reviewed by me Blood Pressure Screening Patient's blood pressure: Normal blood pressure Blood pressure disposition: Did not require urgent referral Impression Primary Impression: Contusion of multiple sites Additional Impression: Fall Scribe Attestation The scribe's documentation has been prepared under my direction and personally reviewed by me in its entirety. I confirm that the note above accurately reflects all work, treatment, procedures, and medical decision making performed by me. Departure Information Dispostion Home / Self-Care Referrals [facility] (PCP) Patient Instructions Bruises Contusions, ED Head Injury Closed, My [facility] Additional Instructions Follow-up with primary care physician this week. Fall precautions. Return for any concerns Problem Qualifiers
--- NOTE | 2017-10-29 07:20 | DIAGNOSTIC IMAGING REPORT ---
CT SCAN OF THE CERVICAL SPINE CLINICAL HISTORY: Fall. COMPARISON STUDY: CT scan of the cervical spine dated 10/17/2017. TECHNIQUE: CT scan of the cervical spine is performed from the skull base to the upper thoracic spine. Images are reviewed in the axial, sagittal, and coronal planes. IV contrast was not administered for this examination. A dose lowering technique was utilized adhering to the principles of ALARA. FINDINGS: Skeletal structures: The skeletal structures are osteopenic. There is no evidence of fracture or subluxation involving the cervical spine. Vertebral body height and alignment are maintained. The odontoid process and lateral masses are intact. The atlantoaxial articulation is preserved noting advanced productive degenerative change. The spinous processes appear intact. Tiny anterior osteophytes are seen throughout. There is mild to moderate multilevel cervical spondylosis. Uncovertebral and facet arthropathy contributes to mild neuroforaminal stenosis at several levels. Intervertebral discs: Moderate to advanced disc space narrowing is seen at C5-C6 and C6-C7. Mild to moderate narrowing is seen at C3-C4 and C4-C5. Central canal: Tiny posterior disc osteophyte complexes at C5-C6 and C6-C7 may contribute to mild acquired compromise the central canal. Soft tissues: The prevertebral and paraspinous soft tissues are within normal limits. A ventricular shunt catheter traverses the right side of the neck. A calcified sialolith is noted in the right parotid gland. Calvarium: The visualized calvarium at the skull base appears intact. Brain parenchyma: Partially visualized brain parenchyma the skull base is within normal limits. Sinuses and mastoids: The visualized paranasal sinuses are clear. The mastoid air cells are well pneumatized. Lung apices: Clear as visualized. IMPRESSION: 1. There is no evidence of fracture or subluxation involving the cervical spine. 2. Osteopenia and spondylotic change as above. Electronically signed by: Elder Mario M.D. 10/29/2017 7:18 AM Dictated Date/Time: 10/29/2017 7:16 AM
--- NOTE | 2017-10-29 07:41 | DIAGNOSTIC IMAGING REPORT ---
CT SCAN OF THE BRAIN WITHOUT IV CONTRAST CLINICAL HISTORY: Trauma. Fall. COMPARISON STUDY: CT of the brain dated 10/17/2017. TECHNIQUE: Unenhanced axial CT scan of the brain is performed from the vertex to the skull base. CT DOSE: 1091.62 mGy.cm FINDINGS: Brain parenchyma: A ventriculostomy catheter from a right frontal approach is unchanged in position. The tip terminates in the frontal horn of the right lateral ventricle. There are age-related involutional changes noting moderate subcortical and periventricular microangiopathic change. There is no hemorrhage, mass effect, or evidence of acute territorial ischemia by CT criteria. Ibrahim-white matter is preserved. No extra-axial fluid collection is seen. Ventricles, sulci, cisterns: Prominent secondary to involutional change. Intracranial vasculature: There is atherosclerotic calcification of the cavernous carotid arteries. Calvarium: The skeletal structures are osteopenic. No depressed calvarial fracture is seen. A right frontal santhosh hole is noted. Sinuses and mastoids: The visualized paranasal sinuses are clear. The mastoid air cells are well pneumatized. Orbits: The bony orbits are grossly intact. IMPRESSION: 1. There is no hemorrhage, mass effect, or evidence of acute territorial ischemia by CT criteria. 2. A right frontal approach ventriculostomy catheter is unchanged in position. Ventricular caliber is stable from previous. Electronically signed by: Elder Mario M.D. 10/29/2017 7:40 AM Dictated Date/Time: 10/29/2017 7:37 AM
[2017-10-29 08:25] VITALS: BP 168/77; PULSE 116; O2SAT 96
== END 2017-10-29 08:28 | disposition home or self-care (01) ==
LOC: EDBD 03:49 → C.EDA 03:50
DX: S00.83XA Contusion of other part of head, initial encounter (principal); W19.XXXA Unspecified fall, initial encounter; Y93.89 Activity, other specified; Y92.122 Bedroom in nursing home as the place of occurrence of the external cause; F03.90 Unspecified dementia, unspecified severity, without behavioral disturbance, psychotic disturbance, mood disturbance, and anxiety

== ENCOUNTER → 2017-12-12 | Outpatient (CLI) | payer OTHER, BC ==
[2017-12-12 10:49] LABS: HEMATOCRIT 39.1 % (42-52); HEMOGLOBIN 13.4 g/dL (14.0-18.0); MEAN CELL VOLUME 90.9 fL (80-100); MEAN CORPUSCULAR HEMOGLOBIN 31.2 pg (25-34); MEAN CORPUSCULAR HGB CONC 34.3 g/dl (32-36); MEAN PLATELET VOLUME 10.4 fL (7.4-10.4); PLATELET COUNT 261 K/uL (130-400); RED CELL DISTRIBUTION WIDTH CV 13.7 % (11.5-14.5); RED CELL DISTRIBUTION WIDTH SD 45.3 fL (36.4-46.3); WHITE BLOOD COUNT 7.06 K/uL (4.8-10.8)
[2017-12-12 11:08] LABS: ALT/SGPT 20 U/L (12-78); BLOOD UREA NITROGEN 17 mg/dl (7-18); CALCIUM 8.7 mg/dl (8.5-10.1); CARBON DIOXIDE 24 mmol/L (21-32); CREATININE 0.87 mg/dl (0.60-1.40); GLUCOSE 84 mg/dl (70-99); SODIUM 141 mmol/L (136-145)
[2017-12-12 11:19] LABS: ALKALINE PHOSPHATASE 86 U/L (45-117); AST/SGOT 15 U/L (15-37); TOTAL PROTEIN 5.8 gm/dl (6.4-8.2)
--- NOTE | 2017-12-14 10:31 | CODING QUERY NO DIAGNOSIS ---
: 1940 TREATMENT RENDERED WITHOUT A DIAGNOSIS To promote full compliance with coding requirements relating to patient care, physician participation is requested in all cases of analysis analyst uncertainty. Please assist us with providing a diagnosis/symptom for the test(s) below: A diagnosis/symptom was not documented on your Order. A valid diagnosis/symptom is required to bill all insurances. Please remember that we are unable to code a diagnosis of rule out, probable, possible, questionable, or suspected. Tests that require a diagnosis: DOS: 12/12/17 * COMPREHENSIVE METABOLIC PANEL DIAGNOSIS: * THYROID STIMULATING HORMONE DIAGNOSIS: * CBC W/O DIFFERENTIAL DIAGNOSIS: * VITAMIN B12 DIAGNOSIS: Provider Signature: Date: Thank you Lou Rocha Health Information Management Once completed, please kindly fax back to [phone] For questions please call [phone]
== END ==
LOC: C.LABFOXAN 08:59
PROVIDERS: ATTEND Internal Medicine
DX: R41.2 Retrograde amnesia (principal)

== ENCOUNTER → 2018-03-22 | Outpatient (CLI) | payer OTHER, BC ==
[~2018-03-22] MED LIST changes: +ACET-1693 PO; -ACET325T96 PO
[2018-03-22 08:55] LABS: BASO % 0.3 %; BASO ABS # 0.02 K/uL (0-0.2); EOS % 2.4 %; EOS ABS # 0.19 K/uL (0-0.5); HEMATOCRIT 40.1 % (42-52); HEMOGLOBIN 13.6 g/dL (14.0-18.0); IG# 0.01 K/uL (0.00-0.02); LYMPH % 26.4 %; LYMPH ABS # 2.07 K/uL (1.2-3.4); MEAN CELL VOLUME 90.5 fL (80-100); MEAN CORPUSCULAR HEMOGLOBIN 30.7 pg (25-34); MEAN CORPUSCULAR HGB CONC 33.9 g/dl (32-36); MEAN PLATELET VOLUME 10.2 fL (7.4-10.4); MONO % 10.1 %; MONO ABS # 0.79 K/uL (0.11-0.59); NEUT % 60.7 %; NEUT ABS # 4.76 K/uL (1.4-6.5); PLATELET COUNT 263 K/uL (130-400); RED CELL DISTRIBUTION WIDTH CV 13.6 % (11.5-14.5); WHITE BLOOD COUNT 7.84 K/uL (4.8-10.8)
[2018-03-22 09:05] LABS: ALT/SGPT 16 U/L (12-78); AST/SGOT 11 U/L (15-37); BLOOD UREA NITROGEN 14 mg/dl (7-18); CALCIUM 8.7 mg/dl (8.5-10.1); CARBON DIOXIDE 28 mmol/L (21-32); CREATININE 1.15 mg/dl (0.60-1.40); GLUCOSE 92 mg/dl (70-99); LIPASE 139 U/L (73-393); POTASSIUM 3.6 mmol/L (3.5-5.1); SODIUM 141 mmol/L (136-145)
[2018-03-22 09:08] LABS: ALKALINE PHOSPHATASE 77 U/L (45-117); TOTAL PROTEIN 5.9 gm/dl (6.4-8.2)
== END | disposition home or self-care (01) ==
LOC: C.LABFOXAN 08:39
PROVIDERS: ATTEND Internal Medicine
DX: R11.0 Nausea (principal)